=== PATIENT | male | born 1990 | race Caucasian/White ===

== ENCOUNTER 2017-10-18 23:37 | Emergency (ER) | payer SELFPAY ==
[~2017-10-18] VITALS: Ht 172.7 cm; Wt 65.0 kg
[2017-10-18 23:40] VITALS: BP 112/58; PULSE 80; RESP 18; TEMP 97.9; O2SAT 100
[2017-10-19] MEDS ORDERED: CEPHALEXIN MONOHYDRATE 500 MG CAP PO ONE ×2 (00:15→09:00)
[2017-10-19] MEDS ORDERED: SULFAMETHOXAZOLE-TRIMETHOPRIM DS 800-160 MG TAB PO ONE ×2 (00:15→09:00)
[2017-10-19] MEDS ORDERED: CEPH-460 PO (00:34)
[2017-10-19] MEDS ORDERED: BACT800T5 PO (00:34)
--- NOTE | 2017-10-19 00:34 | PD ---
HPI Chief Complaint: Psychiatric Symptoms Time Seen by Provider: 23:50 Travel History International Travel<30 days: No Contact w/Intl Traveler<30days: No History of Present Illness HPI Patient is a 26-year-old male transferred from [facility] under a Cardoso act for psychiatric evaluation secondary to making suicidal ideations via text message to his father. Patient presented [facility] for detox/rehab. Patient admits to polysubstance abuse, his drug abuse started at age 14 with alcohol and marijuana progressing to opioids. Patient currently admits to several alcoholic drinks a day, IV Dilaudid, IV heroin, IV amphetamines. He currently denies any suicidal homicidal ideations. He states that when he texted his father that it was more because they had an argument and he was fed up with his drug use and stated that he might as well just . Patient denies any previous suicide attempt. [facility] Social History Alcohol Use: Yes Tobacco Use: Yes Substance Use: Yes (Amphetamines, opiates, heroin, alcohol) Allergies-Medications (Allergen,Severity, Reaction): Coded Allergies: No Known Allergies (Unverified , 10/19/17) Reported Meds & Prescriptions Reported Meds & Active Scripts Active Keflex (Cephalexin) 500 Mg Cap 500 Mg PO Q12H 10 Days Bactrim DS (Sulfamethoxazole-Trimethoprim) 800-160 Mg Tab 1 Tab PO BID Review of Systems Except as stated in HPI: all other systems reviewed are Neg Skin: Positive Change in Pigmentation Psychiatric: Positive: Substance Abuse Physical Exam Narrative GENERAL: Well-developed, well-nourished, alert male. Presenting in no acute distress. SKIN: Warm and dry. 4 x 3 cm area of erythema to left inner forearm. Nontender , nonfluctuant. HEAD: Atraumatic. Normocephalic. EYES: Pupils equal and round. No scleral icterus. No injection or drainage. ENT: No nasal bleeding or discharge. Mucous membranes pink and moist. NECK: Trachea midline. No JVD. CARDIOVASCULAR: Regular rate and rhythm. RESPIRATORY: No accessory muscle use. Clear to auscultation. Breath sounds equal bilaterally. GASTROINTESTINAL: Abdomen soft, non-tender, nondistended. Hepatic and splenic margins not palpable. MUSCULOSKELETAL: Extremities without clubbing, cyanosis, or edema. No obvious deformities. NEUROLOGICAL: Awake and alert. No obvious cranial nerve deficits. Motor grossly within normal limits. Five out of 5 muscle strength in the arms and legs. Normal speech. PSYCHIATRIC: Appropriate mood and affect; insight and judgment normal. Data Data Orders Orders Sulfamet-Trimeth Ds 800-160 Mg (Bactrim (10/19/17 00:15) Cephalexin (Keflex) (10/19/17 00:15) Drug Screen, Random Urine (10/19/17 00:11) Labs Laboratory Tests Test 10/19/17 00:20 [facility] Medical Decision Making Medical Screen Exam Complete: Yes Emergency Medical Condition: Yes Medical Record Reviewed: Yes Interpretation(s) Vital signs are not charted however they were reviewed and are stable. Differential Diagnosis Polysubstance abuse versus depression versus suicidal ideations versus other cellulitis versus abscess versus other Narrative Course Patient is a 26-year-old male presenting under Cardoso act due to making a suicidal attempt via text message to his father. Patient was seen and evaluated at [facility], he was medically cleared there. He presents with ER reports and labs. Urinalysis is unremarkable. CBC with a white count of 14.4. Chemistry with no acute findings. Blood alcohol level is 17. Acetaminophen, salicylate levels were unremarkable. I do not see a urine drug screen, 1 will be repeated here although patient openly admits to using multiple drugs. He does have a cellulitic area to his right inner forearm where he had injected previously. Patient was given Bactrim and Keflex in the emergency department, he will be written prescriptions to complete full course of therapy. Patient is medically cleared for psychiatric evaluation at this time. Diagnosis Primary Impression: Medical clearance for psychiatric admission Additional Impressions: Polysubstance abuse Cellulitis Qualified Codes: L03.113 - Cellulitis of right upper limb Med/Other Pt SpecificInfo: Prescription(s) given Scripts Cephalexin (Keflex) 500 Mg Cap 500 MG PO Q12H for Infection for 10 Days, #20 CAP 0 Refills Prov: Jessica Suarez 10/19/17 Sulfamethoxazole-Trimethoprim (Bactrim DS) 800-160 Mg Tab 1 TAB PO BID for Infection, #20 TAB 0 Refills Prov: Jessica Suarez 10/19/17 Condition: Stable Jessica Suarez Oct 19, 2017 00:34
[2017-10-19 17:51] VITALS: BP 120/60; PULSE 78; RESP 18; O2SAT 99
--- NOTE | 2017-10-19 21:25 | PD ---
History of Present Illness Chief Complaint: Psychiatric Symptoms Time Seen by Provider: 21:10 Travel History International Travel<30 Days: No Contact w/Intl Traveler<30days: No Known affected area: No Legal Status Legal Status: Cardoso Act Cardoso Act Signed By: [place] [id number] Card[place] Act Comment: 10/18/2017 4:45 PM History of Present Illness: History of Present Illness HPI Patient is a 26-year-old male with history of substance use disorder including IV Dilaudid, IV heroin, IV amphetamines and alcohol who was transferred from [facility] under a Cardoso act for psychiatric evaluation secondary to making suicidal ideations via text message to his father. When the patient presented to [facility] he was requesting detox and rehabilitation. Patient admits to polysubstance abuse, his drug abuse started at age 14 with alcohol and marijuana progressing to opioids. He currently denies any suicidal homicidal ideations. He states that when he sent the messages to his father that it was more because they had an argument and he was fed up with his drug use and stated that he might as well just . Patient denies any previous suicide attempt. Patient was monitored in secure environment. Patient was allowed to sober up clinically. Patient denies any suicidal or homicidal ideation. He states he no longer needs detox and feels much better. He also states that he wants to be able to go to back to [place] and go back to sober living home that he was living at [facility].. The patient is not psychotic and the patient is not manic. There is no suicidal or homicidal ideation, intent or plan. He is looking for substance abuse treatment and rehabilitation. PFSH Past Medical History Medical History: Denies Significant Hx Diminished Hearing: No Past Surgical History Appendectomy: Yes Psychiatric History Psychiatric History Hx Psychiatric Treatment: Denies History of Inpatient Treatment: No Social History Hx Alcohol Use: Yes (ABUSE) Hx Tobacco Use: Yes (<1PPD, VAPE) Hx Substance Use: Yes (Amphetamines, opiates, heroin, dilaudid) Substance Use Type: Alcohol, Heroin, Cocaine Other Substances Used: 6 24 oz. malt liquors daily Hx of Substance Use Treatment: No Family Psychiatric History Negative Allergies-Medications (Allergen,Severity, Reaction): Coded Allergies: No Known Allergies (Unverified , 10/19/17) Reported Meds & Prescriptions Reported Meds & Active Scripts Active Keflex (Cephalexin) 500 Mg Cap 500 Mg PO Q12H 10 Days Bactrim DS (Sulfamethoxazole-Trimethoprim) 800-160 Mg Tab 1 Tab PO BID Review of Systems Psychiatric: DENIES: Anxiety, Confusion, Mood changes, Depression, Hallucinations, Agitation, Suicidal Ideation, Homicidal Ideation, Delusions Except as stated in HPI: all other systems reviewed are Neg Mental Status Examination Appearance: Disheveled Consciousness: Alert Orientation: x4 Motor Activity: Normal gait Speech: Unremarkable Language: Adequate Fund of Knowledge: Adequate Attention and Concentration: Adequate Memory: Unremarkable Mood: Appropriate Affect: Appropriate Thought Process & Associations: Intact, Logical, Goal directed Thought Content: Appropriate Hallucination Type: None Delusion Type: None Suicidal Ideation: No Suicidal Plan: No Suicidal Intention: No Homicidal Ideation: No Homicidal Plan: No Homicidal Intention: No Insight: Fair Judgment: Impulsive [facility] Medical Decision Making Medical Record Reviewed: Yes Assessment/Plan Patient is a 26-year-old male with history of substance use disorder including IV Dilaudid, IV heroin, IV amphetamines and alcohol who was transferred from [facility] under a Cardoso act for psychiatric evaluation secondary to making suicidal ideations via text message to his father. When the patient presented to [facility] he was requesting detox and rehabilitation. Patient admits to polysubstance abuse, his drug abuse started at age 14 with alcohol and marijuana progressing to opioids. . He currently denies any suicidal homicidal ideations. He also states that he is no longer withdrawing from substances such he feels much better. The patient is future oriented and has plans on returning to [place] and to seek admission once again in a sober living house. He does not meet Cardoso act criteria at this time. This is substance abuse and he needs substance abuse treatment. BA is lifted. Orders Orders Sulfamet-Trimeth Ds 800-160 Mg (Bactrim (10/19/17 00:15) Cephalexin (Keflex) (10/19/17 00:15) Drug Screen, Random Urine (10/19/17 00:11) Sulfamet-Trimeth Ds 800-160 Mg (Bactrim (10/19/17 09:00) Cephalexin (Keflex) (10/19/17 09:00) Psych Screen (10/19/17 03:51) Diet Regular Basic (10/19/17 Breakfast) Diet Regular Basic (10/19/17 Lunch) Hydroxyzine Pamoate (Vistaril) (10/19/17 14:00) Diet Regular Basic (10/19/17 Dinner) Results Vital Signs Date Time Temp Pulse Resp B/P (MAP) Pulse Ox O2 Delivery O2 Flow Rate FiO2 10/19/17 17:51 78 18 120/60 (80) 99 Room Air 10/19/17 00:47 80 18 10/18/17 23:40 97.9 80 18 112/58 (76) 100 Laboratory Tests Test 10/19/17 00:20 Urine Opiates Screen POS Urine Barbiturates Screen NEG Urine Amphetamines Screen NEG Urine Benzodiazepines Screen NEG Urine Cocaine Screen POS Urine Cannabinoids Screen NEG Diagnosis Primary Impression: Medical clearance for psychiatric admission Additional Impressions: Cellulitis Polysubstance abuse Psychiatrically Cleared: Yes Referrals: NO PRIMARY CARE PHYSICIAN (PCP) call for appointment Departure Forms: Tests/Procedures Patient Instructions: General Instructions, Medical Clearance for Psychiatric Care (ED), Medical Clearance for Substance Abuse Treatment (ED) Med/ Other Pt Specific Info: No Meds Exist/No RX given Prescriptions Cephalexin (Keflex) 500 Mg Cap 500 MG PO Q12H for Infection for 10 Days, #20 CAP 0 Refills Prov: Jessica Suarez 10/19/17 Sulfamethoxazole-Trimethoprim (Bactrim DS) 800-160 Mg Tab 1 TAB PO BID for Infection, #20 TAB 0 Refills Prov: Jessica Suarez 10/19/17 Disposition: 01 DISCHARGE HOME Condition: Stable Problem Qualifiers Additional Impressions: Cellulitis Qualified Codes: L03.113 - Cellulitis of right upper limb Jenelle Ennis Oct 19, 2017 21:25
[2017-10-20 02:32] VITALS: BP 178/55; PULSE 82; RESP 16; O2SAT 97
--- NOTE | 2017-10-20 08:50 | PD ---
Physical Exam Date Seen by Provider: Oct 20, 2017 Time Seen by Provider: 08:48 Narrative 26-year-old male with history of polysubstance abuse, previously medically cleared with cellulitis, treated with Bactrim and Keflex, was seen by psychiatric services, and felt to be psychiatrically stable for discharge. Patient remains medically stable at this time. Patient has prescriptions for antibiotics. Psychiatric follow-up is as per psychiatric note. Data Data Last Documented VS Vital Signs Date Time Temp Pulse Resp B/P (MAP) Pulse Ox O2 Delivery O2 Flow Rate FiO2 10/20/17 02:32 82 16 178/55 (96) 97 Room Air 10/18/17 23:40 97.9 Orders Orders Sulfamet-Trimeth Ds 800-160 Mg (Bactrim (10/19/17 00:15) Cephalexin (Keflex) (10/19/17 00:15) Drug Screen, Random Urine (10/19/17 00:11) Sulfamet-Trimeth Ds 800-160 Mg (Bactrim (10/19/17 09:00) Cephalexin (Keflex) (10/19/17 09:00) Psych Screen (10/19/17 03:51) Diet Regular Basic (10/19/17 Breakfast) Diet Regular Basic (10/19/17 Lunch) Hydroxyzine Pamoate (Vistaril) (10/19/17 14:00) Diet Regular Basic (10/19/17 Dinner) Diet Regular Basic (10/20/17 Breakfast) Labs Laboratory Tests Test 10/19/17 00:20 Urine Opiates Screen POS Urine Barbiturates Screen NEG Urine Amphetamines Screen NEG Urine Benzodiazepines Screen NEG Urine Cocaine Screen POS Urine Cannabinoids Screen NEG MDM Medical Record Reviewed: Yes Supervised Visit with BETTINA: Yes Narrative Course 26-year-old male with history of polysubstance abuse, previously medically cleared with cellulitis, treated with Bactrim and Keflex, was seen by psychiatric services, and felt to be psychiatrically stable for discharge. Patient remains medically stable at this time. Patient has prescriptions for antibiotics. Psychiatric follow-up is as per psychiatric note. Diagnosis Primary Impression: Medical clearance for psychiatric admission Additional Impressions: Cellulitis Qualified Codes: L03.113 - Cellulitis of right upper limb Polysubstance abuse Referrals: NO PRIMARY CARE PHYSICIAN (PCP) call for appointment Patient Instructions: General Instructions, Medical Clearance for Psychiatric Care (ED), Medical Clearance for Substance Abuse Treatment (ED) Departure Forms: Tests/Procedures Scripts Cephalexin (Keflex) 500 Mg Cap 500 MG PO Q12H for Infection for 10 Days, #20 CAP 0 Refills Prov: Jessica Suarez 10/19/17 Sulfamethoxazole-Trimethoprim (Bactrim DS) 800-160 Mg Tab 1 TAB PO BID for Infection, #20 TAB 0 Refills Prov: Jessica Suarez 10/19/17 Disposition: 01 DISCHARGE HOME Condition: Stable Roque Higuera Oct 20, 2017 08:50
== END 2017-10-20 09:30 | disposition home or self-care (01) ==
LOC: NEPD 23:37 → NEPJ 10-20 09:30
DX: F19.10 Other psychoactive substance abuse, uncomplicated (principal); L03.113 Cellulitis of right upper limb; Z72.0 Tobacco use
CPT/HCPCS: 80307; 99284